=== PATIENT | female | born 1970 | race Caucasian/White ===

== ENCOUNTER 2021-02-16 12:56 | Emergency (ER) | payer OTHER ==
[2021-02-16 13:23] VITALS: BP 110/73; PULSE 102; TEMP 98.2; BMI 29.2
[2021-02-16] MEDS ORDERED: ACETAMINOPHEN 1000 MG/100 ML VIAL IVPB ONE (14:42)
[2021-02-16 15:29] LABS: BASO % 1.1 % (0-2.0); EOS % 1.1 % (0-4.5); HEMATOCRIT 31.3 % (32.4-45.2); HEMOGLOBIN 9.5 GM/dL (10.7-15.3); MCHC 30.4 g/dl (32.0-36.0); MEAN CELL VOLUME 64.9 fl (80-96); MEAN PLT VOLUME 8.8 fl (7.5-11.1); MONO % 6.4 % (3.8-10.2); NEUT % 73.4 % (42.8-82.8); PLATELET COUNT 294 10^3/uL (134-434); RBC 4.82 M/mm3 (3.60-5.2); RDW 20.6 % (11.6-15.6); WHITE BLOOD COUNT 12.5 K/mm3 (4.0-10.0)
[2021-02-16 15:32] LABS: MCH 19.7 pg (25.7-33.7)
[2021-02-16 15:40] LABS: CHLORIDE 105 mmol/L (98-107); SODIUM 140 mmol/L (136-145)
[2021-02-16 15:42] LABS: CALCIUM 8.9 mg/dL (8.5-10.1)
[2021-02-16 15:44] LABS: ALBUMIN 3.6 g/dl (3.4-5.0); ANION GAP 9 MMOL/L (8-16); BLOOD UREA NITROGEN 13.4 mg/dL (7-18); CO2 26 mmol/L (21-32); GLUCOSE,RANDOM 98 mg/dL (74-106)
[2021-02-16 15:47] LABS: CREATININE 0.5 mg/dL (0.55-1.3); SGOT/AST 36 U/L (15-37)
[2021-02-16 15:48] LABS: BILIRUBIN,TOTAL 0.2 mg/dL (0.2-1); TOT PROT 7.7 g/dl (6.4-8.2)
[2021-02-16 15:49] LABS: ALK PHOS 78 U/L (45-117)
[2021-02-16 15:57] LABS: SGPT/ALT 23 U/L (13-61)
[2021-02-16 16:47] LABS: ANISOCYTOSIS 2+; MACROCYTOSIS 0; PLATELET ESTIMATE NORMAL
== END 2021-02-16 21:33 | disposition home or self-care (01) ==
LOC: JER 12:56
DX: N64.4 Mastodynia (principal)
CPT/HCPCS: 36415; 71046-TC-FY; 76641-TC-LT; 80053; 82550; 84484; 84703; 85025; 93005; 93010; 99285-25; J0131